=== PATIENT | female | born 1935 | race Caucasian/White ===

== ENCOUNTER 2019-04-08 09:30 | Inpatient (IN) | payer OTHER ==
[~2019-04-08] VITALS: Ht 157.5 cm; Wt 101.4 kg
[2019-04-08 09:30] VITALS: BP 148/62
[~2019-04-08 09:30] MED LIST: ACETAMINOPHEN-120 ML PO; ASPIR 8181 MG PO; ATIVAN PO; CALCIUM PO; COLACE 100 MG100 MG PO; LIPITOR40 MG PO; METOPROLOL 50 M50 M1 PO; PAXIL20 MG PO; POTASSIUM20 PO; PROAIR HFA8.5 GM IH; SIMVASTATIN80 MG PO
[2019-04-08 09:55] LABS: URINE BILIRUBIN NEGATIVE (Negative); URINE BLOOD 2+ (Negative); URINE CLARITY CLEAR; URINE COLOR YELLOW; URINE GLUCOSE-RANDOM* NEGATIVE (Negative); URINE KETONES 2+ (Negative); URINE NITRITE-REFLEX NEGATIVE (Negative); URINE PROTEIN (DIPSTICK) TRACE (Negative); URINE SPECIFIC GRAVITY >= 1.030 (1.005-1.035); URINE UROBILINOGEN 0.2 E.U./dl (0.2-1.0)
[2019-04-08 09:58] LABS: URINE LEUKOCYTES-REFLEX 1+ (Negative)
[2019-04-08 10:05] LABS: CASTS None Seen /LPF (None Seen); MUCUS >6 Heavy strn/LPF (None Seen); SQUAMOUS 4-10 Moderate /LPF (0-3)
[2019-04-08 10:06] LABS: BACTERIA-REFLEX 1-9 Few /HPF (None Seen); CRYSTALS None Seen /LPF (None Seen); URINE RBC 0-2 Rare /HPF (0-2); URINE WBC-REFLEX >25 Many /HPF (0-5)
[2019-04-08 10:07] LABS: WBC CLUMPS Occasional (None Seen)
[2019-04-08] MEDS ORDERED: K-DUR 20 MEQ T20 MEQ PO (10:17)
[2019-04-08] MEDS ORDERED: OMEGA-31000 M1 PO (10:17)
[2019-04-08] MEDS ORDERED: REMERON15 MG PO (10:17)
[2019-04-08 10:19] LABS: ABSOLUTE NEUTROPHILS 8.9 thou/uL (1.4-8.2); BASOPHILS 0.6 % (0.0-2.0); EOSINOPHILS 0.7 % (0.0-3.0); HEMATOCRIT 41.9 % (37.0-47.0); HEMOGLOBIN 13.7 gm/dL (12.0-15.0); LYMPHOCYTES 10.3 % (24.0-44.0); MCH 29.1 pg (26.0-34.0); MCHC 32.8 g/dL (28.0-37.0); MCV 88.7 fL (80.0-100.0); PLATELET COUNT 193 thou/uL (150-400); POLYS 78.4 % (36.0-66.0); RBC 4.72 mil/uL (4.20-5.00); RDW 14.2 % (10.5-14.5); WBC 11.3 thou/uL (4.0-11.0)
[2019-04-08] MEDS ORDERED: TOPROL XL25 MG PO (10:19)
[2019-04-08 10:26] LABS: CALCIUM 9.8 mg/dL (8.5-10.1); CREATININE 1.1 mg/dL (0.6-1.0); POTASSIUM 3.9 mmol/L (3.5-5.1)
[2019-04-08 10:32] LABS: ALBUMIN 3.6 g/dL (3.4-5.0); TOTAL BILIRUBIN 0.7 mg/dL (<0.1-1.0); TOTAL PROTEIN 8.3 g/dL (6.4-8.2)
[2019-04-08 15:00] LABS: ALBUMIN 3.6 g/dL (3.4-5.0); TOTAL PROTEIN 8.3 g/dL (6.4-8.2)
[2019-04-08 15:26] LABS: TSH 1.867 uIU/mL (0.358-3.740)
[2019-04-08 16:15] VITALS: BP 143/70
[2019-04-08 17:44] VITALS: BP 136/66
--- NOTE | 2019-04-08 19:05 | NUR ---
ARRIVED ON 4EAST FROM ED. WHEN I ARRIVED TO ROOM - PATIENT HAD DISCONECTED IV AND HAD DROPS OF BLOOD ALL OVER FLOOR. OREINTED TO SELF - CONFUSED AND FORGETFUL. STEADY ON FEET. REFUSED DINNER.
[2019-04-08 21:51] VITALS: BP 171/85
[2019-04-09 05:53] VITALS: BP 137/71
[2019-04-09 05:56] LABS: HEMATOCRIT 39.2 % (37.0-47.0); HEMOGLOBIN 13.1 gm/dL (12.0-15.0); MCH 29.6 pg (26.0-34.0); MCHC 33.3 g/dL (28.0-37.0); MCV 88.9 fL (80.0-100.0); RBC 4.41 mil/uL (4.20-5.00); WBC 9.5 thou/uL (4.0-11.0)
[2019-04-09 06:17] LABS: CALCIUM 9.2 mg/dL (8.5-10.1); POTASSIUM 3.9 mmol/L (3.5-5.1)
--- NOTE | 2019-04-09 08:27 | NUR ---
ASSESMENT COMPLETED. VSS. OX1. PLEASANT AND CALM THIS AM. IMPULSIVE. REDIRECTABLE. AT BEDSIDE. NEW IV STARTED ON RFA. BED ALARM ON. WILL CONT. TO MONITOR.
--- NOTE | 2019-04-09 08:30 | NUR ---
PT AMBULATING TO BATHROOM WITH ASSIST X1 AND IS TOLERATING FAIR. DENIES PAIN. RESTING COMFORTABLY. NO NEEDS VOICED. CALL LIGHT WITHIN REACH. WILL CONTINUE TO PROVIDE FREQUENT OBSERVATION.
[2019-04-09 10:00] VITALS: BP 117/72
[2019-04-09] MEDS ORDERED: NAMENDA 10 MG T10 MG PO (10:45)
[2019-04-09 19:54] VITALS: BP 146/74
[2019-04-10 07:03] VITALS: BP 151/48
[2019-04-10 07:06] LABS: HEMATOCRIT 38.6 % (37.0-47.0); HEMOGLOBIN 12.7 gm/dL (12.0-15.0); MCH 29.2 pg (26.0-34.0); MCHC 32.9 g/dL (28.0-37.0); MCV 88.7 fL (80.0-100.0); RBC 4.35 mil/uL (4.20-5.00); RDW 13.9 % (10.5-14.5); WBC 12.4 thou/uL (4.0-11.0)
[2019-04-10 07:28] LABS: CALCIUM 8.7 mg/dL (8.5-10.1); MAGNESIUM 1.8 mg/dL (1.8-2.4); POTASSIUM 3.7 mmol/L (3.5-5.1)
--- NOTE | 2019-04-10 08:29 | NUR ---
ASSESMENT COMPLETED. VSS. OX1-2. PLEASANT. DENIES PAIN. NO NOTED SOA. NO NV. PT RESTING IN BED AT THIS MARISSA. AT BEDSIDE. MEDS GIVEN ORDERED- TOELRATED WELL. FALL PREC. INTACT. WILL CONT. TO MONITOR.
[2019-04-10 13:55] VITALS: BP 121/51
[2019-04-10 14:36] VITALS: BP 148/57
--- NOTE | 2019-04-10 15:33 | NUR ---
dp sent referral to [facility] and let Cezar know to expect incoming faxed referral.
[2019-04-10 18:00] VITALS: BP 143/69
--- NOTE | 2019-04-10 18:04 | NUR ---
met with patient and spouse at bedside. Patient admits with UTI and forgettful. Spouse reports all needs on one level for patient. She has a walker but does not use at home. He reports he assist some with adls. He reports patient able to dress herself. They have a tub/shower with no seat in tub. Sp prefers to inquire into post acute care for strengthing. he is concern of patient to dc home weak. Spouse drives and does cooking. He reports interest in possible [facility]. He has rec post acute list and plans to review with nigiselle as well. Referral to [facility] for post acute care.
--- NOTE | 2019-04-10 18:24 | NUR ---
APPROX 1400 PT STARTED SHAKING AND SPIKED TEMP 101.2. TACHY AT 120'S REGULAR RATE. PAGED DR. LAI- SEE ORDERS. PT AFEBRILE AT THIS TIME, SYMPTOMS BETTER. WILL CONT. TO MONITOR.
[2019-04-10 20:00] VITALS: BP 113/60
--- NOTE | 2019-04-11 03:53 | NUR ---
ASSUMED PT CARE 1899. PT ALERT TO SELF. REASSESSMENT COMPLETE. VSS. IV DRESSING C/D/I. DENEIS PAIN. DENIES N/V. AT BEDSIDE. FEVER OF 101.3, DURING THE NIGHT, TREATED WITH TYLENOL. EPISODE OF DIARRHEA AT BEGINGS OF SHIFT. CALL LIGHT ADN PERSONAL BELONINGS WITHIN REACH. WILL CONTINUE POC UNTIL EOS.
[2019-04-11 04:22] VITALS: BP 127/64
[2019-04-11 06:06] LABS: HEMATOCRIT 34.7 % (37.0-47.0); HEMOGLOBIN 11.5 gm/dL (12.0-15.0); MCH 29.1 pg (26.0-34.0); MCHC 33.1 g/dL (28.0-37.0); MCV 87.8 fL (80.0-100.0); RBC 3.95 mil/uL (4.20-5.00); WBC 8.1 thou/uL (4.0-11.0)
[2019-04-11 06:28] LABS: CALCIUM 8.3 mg/dL (8.5-10.1); MAGNESIUM 1.7 mg/dL (1.8-2.4)
[2019-04-11 08:00] VITALS: BP 136/80
[2019-04-11 14:00] VITALS: BP 145/73
--- NOTE | 2019-04-11 15:08 | NUR ---
KATELYN INIDCATED THAT PT WOULD BENEFIT FROM TRANSFER FOR UROLOGY SERVICES. PT'S SPOUSE INDICATED HE WOULD PREFER PT GO TO [facility] [place] CM CALLED TRANSFER CENTER AND FAXED FACE SHEET AND COPIES OF INSURANCE CARDS PER THEIR REQUEST. CM AWAITING RESPONSE. [facility] FORM AND TRANSFER FORM COMPLETED. CM TO FOLLOW INDICATED WITH DC PLANNING.
[2019-04-11 16:00] VITALS: BP 118/64
--- NOTE | 2019-04-11 16:48 | NUR ---
Assumed pt care at 7am.Pt has frequent urination related kidney stone. Assessment completed.vss.Dr Gaines here,order noted.Pt supposed to transfer to [facility] for urology issue.manager pe working on transfer.Around 1400,pt was shivering in bed c/o cold.Temp was 98.8 with bp 145/73.Dr Ruiz notified.Order noted.Pt was better after given tylenol po x1. in bed most of the times today with some of the family memeber.Will continue to monitor.
--- NOTE | 2019-04-11 18:02 | NUR ---
pt was accepted for admission to [facility]. pt was accepted to room [address] lomax. cm notified pt and spouse. orders were completed. chart copy made. reprot was called. cm called [facility] and pt is to be picked up between [id number]. no other cm intervention indicated case closed.
[2019-04-12 00:03] VITALS: BP 139/73
== END 2019-04-11 19:00 | disposition short-term general hospital (02) | DRG 871 ==
LOC: ER 09:30 → 4E 12:22 → EROBS 12:22 → 4E 16:59
PROVIDERS: Emergency Medicine; ADMIT Internal Medicine
DX: A41.9 Sepsis, unspecified organism (principal); G93.41 Metabolic encephalopathy; N39.0 Urinary tract infection, site not specified; N17.9 Acute kidney failure, unspecified; R65.20 Severe sepsis without septic shock; E78.5 Hyperlipidemia, unspecified; Z79.82 Long term (current) use of aspirin; F03.90 Unspecified dementia, unspecified severity, without behavioral disturbance, psychotic disturbance, mood disturbance, and anxiety; N18.9 Chronic kidney disease, unspecified; I12.9 Hypertensive chronic kidney disease with stage 1 through stage 4 chronic kidney disease, or unspecified chronic kidney disease
CPT/HCPCS: 10084